=== PATIENT | male | born 2000 | race American Indian/Alaskan Native ===

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

== ENCOUNTER 2019-11-21 08:25 | Emergency (ER) | payer SELFPAY ==
[2019-11-21 08:54] VITALS: BP 121/74
--- NOTE | 2019-11-21 09:38 | Emergency Department Report ---
Minor Respiratory - HPI Chief Complaint: Adult Asthma Stated Complaint: ASTHMA ATTACK/CHEST PAIN Time Seen by Provider: 11/21/19 09:32 Duration: 2 Days Minor Respiratory: Yes Cough, No Rhinorrhea, No Sore Throat, No Able to Tolerate Fluids, No Ear Pain, No Sick Contacts, No Hemoptysis, No Chest Pain, No Shortness of Breath, No Fever Other History: 19-year-old -[place] male presents to the emergency room for coughing all night and trouble breathing when he woke up this morning with chest tightness. Patient reports some relief with his inhaler. Patient has a history of asthma and reports his last asthma attack was 2 years ago. Patient currently on montelukast, fluticasone salmeterol, Claritin and albuterol inhaler. Grandmother is requesting a refill on his montelukast as it is . Patient denies any fever chills no nausea no vomiting. ED Review of Systems ROS: Stated complaint: ASTHMA ATTACK/CHEST PAIN Other details as noted in HPI Comment: All other systems reviewed and negative Respiratory: cough ED Past Medical Hx - Past Medical History Hx Congestive Heart Failure: No Hx Diabetes: No Hx Asthma: Yes Hx COPD: No - Social History Smoking Status: Never Smoker Substance Use Type: Alcohol - Medications Home Medications: Home Medications Medication Instructions Recorded Confirmed Last Taken Type Montelukast [Singulair] 10 mg PO QHS 09/27/13 01/08/18 04/16/17 History Fluticasone/Salmeterol [Advair 1 puff IH BID 04/17/17 01/08/18 04/16/17 History Diskus 250-50 mcg] Benzonatate [Tessalon Perles] 100 mg PO Q8HR #20 capsule 10/06/17 01/08/18 Unknown Rx Ondansetron [Zofran Odt] 4 mg PO TID PRN #12 tab.rapdis 01/07/18 Unknown Rx levoFLOXacin [Levaquin TAB] 750 mg PO DAILY #3 tablet 01/11/18 Unknown Rx predniSONE [Deltasone] 20 mg PO QDAY 5 Days #5 tab 11/21/19 Unknown Rx Minor Respiratory Exam - Exam General: Vital signs noted. No distress. Alert and acting appropriately. HEENT: Yes Moist Mucous Membranes, No Pharyngeal Erythema, No Pharyngeal Exudates, No Rhinorrhea, No Conjuctival Injection, No Frontal Tenderness, No Maxillary Tenderness Neck: Yes Supple, No Adenopathy Lungs: Yes Good Air Exchange, No Wheezes, No [place], No Stridor, No Cough, No Labored Respirations, No Retractions, No Use of Accessory Muscles, No Other Abnormal Lung Sounds Heart: Yes Regular, No Murmur Skin: No Rash, No Edema Neurologic: Alert and oriented, no deficits. Musculoskeletal: Unremarkable. ED Course Vital Signs 11/21/19 08:49 Temperature 97.9 F Pulse Rate 86 Respiratory 18 Rate Blood Pressure 121/74 O2 Sat by Pulse 97 Oximetry ED Medical Decision Making - Medical Decision Making 19-year-old -[place] male presents to the emergency room for coughing all night and trouble breathing when he woke up this morning with chest tightness. Patient reports some relief with his inhaler. Patient has a history of asthma and reports his last asthma attack was 2 years ago. Patient currently on montelukast, fluticasone salmeterol, Claritin and albuterol inhaler. Grandmother is requesting a refill on his montelukast as it is . Patient denies any fever chills no nausea no vomiting. Patient's lungs are clear to auscultation. I encourage him to take his medications as prescribed. I will refill his Singulair. And place him on 4 days worth of prednisone. Patient is to follow-up with her primary care provider. Critical care attestation.: If time is entered above; I have spent that time in minutes in the direct care of this critically ill patient, excluding procedure time. ED Disposition Clinical Impression: Asthma Disposition: DC-01 TO HOME OR SELFCARE Is pt being admited?: No Does the pt Need Aspirin: No Condition: Stable Instructions: Asthma (ED), Reactive Airways Disease (ED) Additional Instructions: Take all your chronic medications as prescribed. Follow-up with your primary care provider. Prescriptions: predniSONE [Deltasone] 20 mg PO QDAY 5 Days #5 tab Referrals: PRIMARY CAREMD [Primary Care Provider] - 3-5 Days LUPIS HAGAN MD [Staff Physician] - 3-5 Days Forms: Work/School Release Form(ED)
== END 2019-11-21 09:43 | disposition home or self-care (01) ==
LOC: ED 08:25
DX: J45.909 Unspecified asthma, uncomplicated (principal)
CPT/HCPCS: 99282

== ENCOUNTER 2020-01-22 07:34 | Emergency (ER) | payer SELFPAY ==
[2020-01-22 07:41] VITALS: BP 135/75
--- NOTE | 2020-01-22 10:20 | Emergency Department Report ---
- General Chief complaint: Skin/Abscess/Foreign Body Stated complaint: GRION AREA CYST/PAIN Source: patient Mode of arrival: Ambulatory Limitations: No Limitations - History of Present Illness Initial comments: 19-year-old no acute distress nontoxic in appearance -[place] male presents to the emergency room for abscess to his right buttocks x2 to 3 weeks with groin pain. Patient states that he has had this in the past and has had to have surgery. Patient reports that it is now draining and it is painful. Patient denies any fever chills no nausea no vomiting. Patient reports no known drug allergies and currently takes no medications on a daily basis. MD complaint: abscess/boil Onset/Timin -: week(s) Location: buttocks Severity scale (0 -10): 7 Quality: aching Consistency: constant Improves with: none Worsens with: none Context: none Associated symptoms: denies other symptoms Treatments Prior to Arrival: none - Related Data Home Medications Medication Instructions Recorded Confirmed Last Taken Montelukast [Singulair] 10 mg PO QHS 09/27/13 01/08/18 04/16/17 Fluticasone/Salmeterol [Advair 1 puff IH BID 04/17/17 01/08/18 04/16/17 Diskus 250-50 mcg] Previous Rx's Medication Instructions Recorded Last Taken Type Benzonatate [Tessalon Perles] 100 mg PO Q8HR #20 capsule 10/06/17 Unknown Rx Ondansetron [Zofran Odt] 4 mg PO TID PRN #12 tab.rapdis 01/07/18 Unknown Rx levoFLOXacin [Levaquin TAB] 750 mg PO DAILY #3 tablet 01/11/18 Unknown Rx predniSONE [Deltasone] 20 mg PO QDAY 5 Days #5 tab 11/21/19 Unknown Rx cephALEXin [Keflex] 500 mg PO Q8HR 10 Days #30 cap 01/22/20 Unknown Rx Allergies Allergy/AdvReac Type Severity Reaction Status Date / Time No Known Allergies Allergy Verified 10/05/17 21:02 Abscess Boil HPI - HPI Chief Complaint: Skin/Abscess/Foreign Body Stated Complaint: GRION AREA CYST/PAIN Home Medications: Home Medications Medication Instructions Recorded Confirmed Last Taken Montelukast [Singulair] 10 mg PO QHS 09/27/13 01/08/18 04/16/17 Fluticasone/Salmeterol [Advair 1 puff IH BID 04/17/17 01/08/18 04/16/17 Diskus 250-50 mcg] Previous Rx's Medication Instructions Recorded Last Taken Type Benzonatate [Tessalon Perles] 100 mg PO Q8HR #20 capsule 10/06/17 Unknown Rx Ondansetron [Zofran Odt] 4 mg PO TID PRN #12 tab.rapdis 01/07/18 Unknown Rx levoFLOXacin [Levaquin TAB] 750 mg PO DAILY #3 tablet 01/11/18 Unknown Rx predniSONE [Deltasone] 20 mg PO QDAY 5 Days #5 tab 11/21/19 Unknown Rx cephALEXin [Keflex] 500 mg PO Q8HR 10 Days #30 cap 01/22/20 Unknown Rx Allergies/Adverse Reactions: Allergies Allergy/AdvReac Type Severity Reaction Status Date / Time No Known Allergies Allergy Verified 10/05/17 21:02 ED Review of Systems ROS: Stated complaint: GRION AREA CYST/PAIN Other details as noted in HPI Comment: All other systems reviewed and negative ED Past Medical Hx - Past Medical History Hx Congestive Heart Failure: No Hx Diabetes: No Hx Asthma: Yes Hx COPD: No - Social History Smoking Status: Never Smoker Substance Use Type: None - Medications Home Medications: Home Medications Medication Instructions Recorded Confirmed Last Taken Type Montelukast [Singulair] 10 mg PO QHS 09/27/13 01/08/18 04/16/17 History Fluticasone/Salmeterol [Advair 1 puff IH BID 04/17/17 01/08/18 04/16/17 History Diskus 250-50 mcg] Benzonatate [Tessalon Perles] 100 mg PO Q8HR #20 capsule 10/06/17 01/08/18 Unknown Rx Ondansetron [Zofran Odt] 4 mg PO TID PRN #12 tab.rapdis 01/07/18 Unknown Rx levoFLOXacin [Levaquin TAB] 750 mg PO DAILY #3 tablet 01/11/18 Unknown Rx predniSONE [Deltasone] 20 mg PO QDAY 5 Days #5 tab 11/21/19 Unknown Rx cephALEXin [Keflex] 500 mg PO Q8HR 10 Days #30 cap 01/22/20 Unknown Rx ED Physical Exam - General Limitations: No Limitations General appearance: alert, in no apparent distress - Head Head exam: Present: atraumatic, normocephalic - Eye Eye exam: Present: normal appearance - ENT ENT exam: Present: mucous membranes moist - Neck Neck exam: Present: normal inspection, full ROM - External exam: Present: other (Lymphadenopathy in groin area) - Back Exam Back exam: Present: normal inspection, full ROM - Neurological Exam Neurological exam: Present: alert, oriented X3, normal gait - Psychiatric Psychiatric exam: Present: normal affect, normal mood - Expanded Skin Exam Expanded Distribution of rash: other (Right buttocks and right gluteal fold) Description of rash: Present: tenderness, discharge, other (2 opens with drainage appreciated no foul smell). Absent: swelling, fluctuant, indurated ED Course Vital Signs 01/22/20 07:40 Temperature 98.5 F Pulse Rate 92 H Respiratory 16 Rate Blood Pressure 135/75 [Right] O2 Sat by Pulse 96 Oximetry ED Medical Decision Making - Medical Decision Making 49-year-old male in no acute distress nontoxic in appearance comes in complaining of neck and back pain for 2 weeks. Patient states he had a fall approximately 2 weeks ago had hit his head reports that questionable loss of consciousness. Patient denies any nausea vomiting no headache no change of vis ion no new weaknesses. Patient reports he took ibuprofen. Patient reports his last dose of ibuprofen was last night. Draining abscess will place patient on antibiotics of Keflex 500 mg twice a day for 10 days and to patient is to follow-up with her primary care provider. Patient can take Tylenol or ibuprofen as needed. Patient also has lymphadenopathy in the low right groin most likely due to infection. Patient to follow-up with the primary care provider Critical care attestation.: If time is entered above; I have spent that time in minutes in the direct care of this critically ill patient, excluding procedure time. ED Disposition Clinical Impression: Cellulitis and abscess of buttock Disposition: [id number] TO HOME OR SELFCARE Is pt being admited?: No Does the pt Need Aspirin: No Condition: Stable Instructions: Cellulitis (ED) Additional Instructions: Complete antibiotics as prescribed. Tylenol or ibuprofen as needed for pain management. Follow-up with a primary care provider in the next 3 to 5 days. Prescriptions: cephALEXin [Keflex] 500 mg PO Q8HR 10 Days #30 cap Referrals: PRIMARY CARE, [Primary Care Provider] - 3-5 Days [facility] [Provider Group] - 3-5 Days Forms: Work/School Release Form(ED)
== END 2020-01-22 10:26 | disposition home or self-care (01) ==
LOC: ED 07:34
DX: L03.317 Cellulitis of buttock (principal); J45.909 Unspecified asthma, uncomplicated; Z79.899 Other long term (current) drug therapy; Z79.2 Long term (current) use of antibiotics
CPT/HCPCS: 99282